=== PATIENT | female | born 1965 | race Caucasian/White ===

== ENCOUNTER 2019-07-21 12:06 | Emergency (ER) | payer MEDICAID ==
[2019-07-21 12:31] VITALS: BP 145/88
--- NOTE | 2019-07-21 12:41 | UC ---
Ear Complaint HPI - HPI Summary HPI Summary: 54-year-old female with complaints of a right earache over the past 3 days. She states she feels some fluid in there and thinks she's had some drainage. She's had a runny nose for a few days but no other cold symptoms and no fever or chills. - History of Current Complaint Chief Complaint: UCEar Stated Complaint: RT EAR PAIN Time Seen by Provider: 07/21/19 12:24 Hx Obtained From: Patient ?: No Onset/Duration: Gradual Onset, Lasting Days Severity Initially: Mild Severity Currently: Mild Pain Intensity: 5 Aggravating Factors: Nothing Alleviating Factors: Nothing Associated Signs/Symptoms: Positive: URI Symptoms - Patient has only had a runny nose and no other cold symptoms. - Allergies/Home Medications Allergies/Adverse Reactions: Allergies Allergy/AdvReac Type Severity Reaction Status Date / Time No Known Allergies Allergy Verified 07/21/19 12:26 Home Medications: Home Medications Amoxicillin PO (*) [Amoxicillin 875 MG (*)] 875 mg PO BID 10 Days #20 tab [Rx] Fluconazole 150 MG TAB* [Diflucan 150 MG TAB*] 150 mg PO UC ONCE #1 tablet 07/20 [Rx] PMH/Surg Hx/FS Hx/Imm Hx Previously Healthy: Yes - Surgical History Surgical History: Yes Surgery Procedure, Year, and Place: small bowel resection . abd sx to untwist intestines 2008 - Family History Known Family History: Positive: Unknown - Social History Occupation: Employed Full-time Lives: With Family Alcohol Use: Weekly Substance Use Type: None Smoking Status (MU): Never Smoked Tobacco Review of Systems All Other Systems Reviewed And Are Negative: Yes ENT: Positive: Ear Ache - Right earache over the past 2 or 3 days., Nasal Discharge - Mild runny nose but no other cold symptoms. Is Patient Immunocompromised?: No Physical Exam Triage Information Reviewed: Yes Appearance: Well-Appearing, No Pain Distress, Well-Nourished Vital Signs: Initial Vital Signs Temp 98 F 07/21/19 12:27 Pulse 65 07/21/19 12:27 Resp 16 07/21/19 12:27 BP 145/88 07/21/19 12:27 Pulse Ox 100 07/21/19 12:27 Vital Signs Reviewed: Yes Eyes: Positive: Conjunctiva Clear ENT: Positive: Hearing grossly normal, Pharynx normal, TM red - Left tympanic membranes pearly garcia with good land hardin and light reflex, right tympanic membrane is erythematous but with good landmarks., Uvula midline Neck: Positive: Supple, Nontender, No Lymphadenopathy Respiratory: Positive: Lungs clear, Normal breath sounds, No respiratory distress, No accessory muscle use Cardiovascular: Positive: RRR, No Murmur, Pulses Normal, Brisk Capillary Refill Musculoskeletal Exam: Normal Neurological Exam: Normal Psychological Exam: Normal Skin Exam: Normal Ear Complaint Course/Dx - Course Course Of Treatment: Patient is comfortable here and in no distress. I gave her the option of treating the ear infection with [id number] pain medications for a day or 2 and see if it resolves. She can wait to start the antibiotic. Because she gets yeast infections with antibiotics I also gave her Diflucan. - Differential Dx/Diagnosis Provider Diagnosis: Otitis media, right Discharge ED - Sign-Out/Discharge Documenting (check all that apply): Patient Departure All imaging exams completed and their final reports reviewed: No Studies - Discharge Plan Condition: Good Disposition: HOME Prescriptions: Amoxicillin PO (*) [Amoxicillin 875 MG (*)] 875 mg PO BID 10 Days #20 tab Fluconazole 150 MG TAB* [Diflucan 150 MG TAB*] 150 mg PO UC ONCE #1 tablet Patient Education Materials: Ear Infection (ED) Referrals: [facility] [Outside] No Primary Care Phys,NOPCP [Primary Care Provider] - Additional Instructions: May take Tylenol every 4 hours and ibuprofen every 8 hours for pain. If you start the antibiotic take it twice a day for the full 10 days. Follow-up with your primary care provider or [facility] if no improvement in 3 or 4 days. - Billing Disposition and Condition Condition: GOOD Disposition: Home
== END 2019-07-21 12:57 | disposition home or self-care (01) ==
LOC: UCCORT 12:06
DX: H66.91 Otitis media, unspecified, right ear (principal); J34.89 Other specified disorders of nose and nasal sinuses
CPT/HCPCS: 99202; G0463